=== PATIENT | female | born 1955 ===

== ENCOUNTER 2020-05-01 12:30 | Outpatient (REF) | payer MEDICARE, MEDICAID, SELFPAY | END 2020-05-01 12:31 | disposition home or self-care (01) | LOC: HO.HAP 12:30 | PROVIDERS: Visit Provider Internal Medicine | DX: Z46.1 Encounter for fitting and adjustment of hearing aid (principal) | CPT/HCPCS: V5266 ==

== ENCOUNTER 2020-08-21 13:30 | Outpatient (REF) | payer MEDICARE, MEDICAID, SELFPAY | END 2020-08-21 13:31 | disposition home or self-care (01) | LOC: HO.HAP 13:30 | PROVIDERS: Visit Provider Internal Medicine | DX: Z46.1 Encounter for fitting and adjustment of hearing aid (principal) | CPT/HCPCS: V5266 ==

== ENCOUNTER 2021-06-05 10:59 | Outpatient (REF) | payer MEDICARE, MEDICAID, SELFPAY | END 2021-06-05 11:00 | disposition home or self-care (01) | LOC: HO.HAP 10:59 | PROVIDERS: Visit Provider Internal Medicine | DX: Z46.1 Encounter for fitting and adjustment of hearing aid (principal); H90.3 Sensorineural hearing loss, bilateral | CPT/HCPCS: V5266 ==

== ENCOUNTER 2022-10-07 11:01 | Outpatient (REF) | payer MEDICARE, MEDICAID, SELFPAY | END 2022-10-07 11:02 | disposition home or self-care (01) | LOC: HO.HAP 11:01 | PROVIDERS: Visit Provider Internal Medicine | DX: Z46.1 Encounter for fitting and adjustment of hearing aid (principal); H90.3 Sensorineural hearing loss, bilateral | CPT/HCPCS: V5266 ==